=== PATIENT | male | born 1985 | race Caucasian/White ===

== ENCOUNTER 2023-08-10 22:11 | Emergency (ER) | payer BC, SELFPAY ==
--- NOTE | ~2023-08-10 | XR_ITS ---
Right Hand Technique: PA, oblique, and lateral views were obtained. Clinical History: Dog bite Findings: No acute fracture or dislocation is seen. Osseous alignment is anatomic. Joint spaces are p reserved. Soft tissues are unremarkable. Impression: Unremarkable right hand. Reviewed, dictated and finalized at location M. Impression: Unremarkable right hand.
[2023-08-10 22:13] VITALS: BP 150/99; PULSE 83; RESP 14; TEMP 36.8; O2SAT 100
--- NOTE | 2023-08-11 00:27 | ED.ANIMALBIT ---
HPI - Animal Bite General Chief Complaint: Animal Bite Stated Complaint: dog bite Time Seen by Provider: 08/10/23 23:57 Source: patient Mode of arrival: ambulatory Limitations: no limitations History of Present Illness HPI narrative: This is a 37 year old male that presents to the ER for dog bite to the right hand. Sustained yesterday. Reports bruising and pain to the area. Reports the dog is up to date on it's vaccinations. He is not up to date on tetanus vaccination. Denies fever, decreased ROM, or numbness. Review of Systems Review of Systems: CONSTITUTIONAL: Denies fever SKIN: Reports puncture wound MUSCULOSKELETAL: Reports joint pain, or myalgia. NEUROLOGIC: Denies numbness All systems reviewed & are unremarkable except as noted in HPI and below PMFSH Past Medical History Medical History (Updated 08/11/23 @ 00:52 by Nati Belcher PA-C) History of hypertension Social History Social History (Updated 08/11/23 @ 00:29 by Nati Belcher PA-C) Substance use: never Exam Narrative: GENERAL: Well-appearing, well-nourished, and in no acute distress. HEAD: Normocephalic, atraumatic. EYES: EOMI. EXTREMITIES: Normal range of motion. No edema. Right hand with bruising present with several small puncture wounds. No erythema or abnormal drainage. Normal radial pulse. Normal sensation SKIN: Warm, dry, no rash. NEURO: No focal deficits. Alert and oriented x3. PSYCH: Normal mood and affect Course Course Emergency Course: Patient updated on workup and agrees with plan of care Vital Signs Vital signs: Vital Signs Temperature 98.3 F 08/10/23 22:13 Pulse Rate 83 08/10/23 22:13 Respiratory Rate 14 08/10/23 22:13 Blood Pressure 150/99 H 08/10/23 22:13 Pulse Oximetry 100 08/10/23 22:13 Oxygen Delivery Room Air 08/10/23 22:13 Temperature 98.3 F 08/10/23 22:13 Pulse Rate 83 08/10/23 22:13 Respiratory Rate 14 08/10/23 22:13 Blood Pressure 150/99 H 08/10/23 22:13 Pulse Oximetry 100 08/10/23 22:13 Oxygen Delivery Room Air 08/10/23 22:13 MDM - Animal Bite MDM Narrative Medical decision making narrative: Patient presents to the ER for dog bite sustained yesterday. No active signs of infection on exam. Patient is neurovascularly intact. Right hand x-ray without acute osseous abnormalities. Patient updated on tetanus. Will be started on prophylactic antibiotics. He is to follow up with PCP. He was given warnings to return to the ER Differential Diagnosis Differential diagnosis: Likely dog bite and other (cellulitis) Imaging Data My impression: Right hand x-ray: No acute osseous abnormalities Critical Care Time Critical Care Time Critical Care Time: No Discharge Plan Discharge Clinical Impression: Dog bite Qualifiers: Encounter type: initial encounter Qualified Code(s): W54.0XXA - Bitten by dog, initial encounter Patient Disposition: Home, Self-Care Condition: Stable Instructions: Antibiotic Form, Animal Bite (ED) Additional Instructions: Return to the emergency department if you experience fever, redness or swelling of your hand, abnormal drainage from your wounds, or any other symptoms that are concerning to you. Do not soak the wound. Clean with mild soap and water daily. Take oral antibiotics as prescribed Follow-up with your primary care doctor for wound check Prescriptions: New amoxicillin-pot clavulanate 875-125 mg tablet 1 tablet PO Q12H 7 Days Qty: 14 0RF Follow-up/Referrals: PHYSICIAN NOT ON STAFF,NONSTAFF [Primary Care Provider] -
[2023-08-11] MEDS: TETANUS,DIPHTHERIA,AC PERTUSSIS ADULT (0.5 ML) BOOSTRIX IM (01:07)
[2023-08-11] MEDS: AMOXICILLIN/CLAVULANATE K 875-125 MG TAB 1 TABLET PO (01:07)
[2023-08-11 01:08] VITALS: BP 126/86; PULSE 68; RESP 16; TEMP 36.6; O2SAT 98
== END 2023-08-11 01:11 | disposition home or self-care (01) ==
PROVIDERS: Emergency Provider Physician Assistant
DX: S61.451A Open bite of right hand, initial encounter (principal); Z23 Encounter for immunization; I10 Essential (primary) hypertension; W54.0XXA Bitten by dog, initial encounter
CPT/HCPCS: 73130; 90471; 90715; 99283; A9270